=== PATIENT | male | born 1950 | race Caucasian/White ===

== ENCOUNTER 2020-07-05 05:50 | Observation (INO) | payer MEDICARE, OTHER ==
[2020-06-18 10:51] LABS: BASOPHILS % 0.7 % (0.0-1.0); EOSINOPHILS # (AUTO) 0.5 (0.0-0.4); EOSINOPHILS % 8.3 % (0.0-6.0); HEMOGLOBIN 16.3 g/dL (14.0-18.0); LYMPHOCYTES # (AUTO) 1.1 (1.0-3.2); MEAN CORPUSCULAR HGB CONC 33.3 g/dL (31-35); MEAN CORPUSCULAR VOLUME 93.2 fL (81-99); MONOCYTES # (AUTO) 0.4 (0.2-0.8); MONOCYTES % 6.2 % (4.4-11.3); NEUTROPHILS # (AUTO) 3.7 (2.1-6.9); NEUTROPHILS % 65.3 % (38.7-80.0); PLATELET COUNT 167 x10e3/uL (140-360); RED BLOOD COUNT 5.26 x10e6/uL (4.3-5.7); RED CELL DISTRIBUTION WIDTH 13.8 % (11.7-14.4)
[2020-06-18 11:16] LABS: ANION GAP 16.2 mmol/L (8-16); BLOOD UREA NITROGEN 17 mg/dL (7-26); BUN/CREATININE RATIO 18 (6-25); CALCIUM 10.2 mg/dL (8.4-10.2); CARBON DIOXIDE 24 mmol/L (22-29); CHLORIDE 102 mmol/L (98-107); CREATININE, SERUM 0.93 mg/dL (0.72-1.25); EST GLOMERULAR FILTRATION RATE > 60 ML/MIN (60-); GLUCOSE 135 mg/dL (74-118); POTASSIUM 4.2 mmol/L (3.5-5.1); SODIUM 138 mmol/L (136-145)
[~2020-07-05] VITALS: Ht 175.3 cm; Wt 112.9 kg
[~2020-07-05 05:50] MED LIST: ALFUZOSIN HCL10 MG PO; CELEBREX100 MG PO; LATANOPROST2.5 ML OU; LISINOPRIL-HCT1 EAC2 PO; MYRBETRIQ50 MG PO; SYNJARDY 12.5-1 EACH PO; TRULICITY0.75 MG/0. SQ; VESICARE10 MG PO
[2020-07-05] MEDS ORDERED: CEFTRIAXONE SOD 1 GM/NS 50 ML 50 ML IV ONE (06:25)
[2020-07-05] MEDS ORDERED: B&O 60MG R/S 60 MG SUPP PR ONE (07:35)
[2020-07-05] MEDS ORDERED: ONDANSETRON HCL INJ 2MG/ML 2ML 2 MG/ML VIAL ONE ×2 (09:25→18:06)
[2020-07-05] MEDS ORDERED: SODIUM CHLORIDE 0.9% 1000ML 1,000 ML ONE (09:44)
[2020-07-05 10:34] VITALS: BP 136/69
[2020-07-05 10:41] VITALS: BP 136/69
[2020-07-05 10:45] VITALS: BP 136/69
[2020-07-05] MEDS ORDERED: CELECOXIB 100 MG CAP PO PRN (11:15)
[2020-07-05] MEDS ORDERED: MIDAZOLAM HCL 2 MG/2 ML VIAL ONE (13:11)
[2020-07-05] MEDS ORDERED: FENTANYL CITRATE/PF 100MCG/2 ML INJ ONE (13:11)
[2020-07-05] MEDS: CIPROFLOXACIN 500 MG TAB PO SCH ×2 (13:59→20:13)
[2020-07-05 15:31] VITALS: BP 102/59
[2020-07-05] MEDS ORDERED: LIDOCAINE HCL 2% LOCAL INJ 5 ML SDV VIAL INJ ONE (18:06)
[2020-07-05] MEDS ORDERED: SEVOFLURANE INHAL SOLN 250 ML PEN BTL ONE (18:06)
[2020-07-05] MEDS ORDERED: PROPOFOL IV EMULSION 10 MG/ML 20 ML VIAL ONE (18:06)
[2020-07-05] MEDS ORDERED: DEXAMETHASONE SOD PHOS INJ 4 MG/ML VIAL ONE (18:06)
[2020-07-05] MEDS: EMPAGLIFLOZIN PO SCH (18:12)
[2020-07-05] MEDS: METFORMIN HCL PO SCH (18:12)
[2020-07-05 19:33] VITALS: BP 113/62
[2020-07-05 19:52] VITALS: BP 113/62
[2020-07-05] MEDS: LATANOPROST(OPTH) 2.5 ML BTL OU SCH (20:13)
[2020-07-05] MEDS: ACETAMINOPHEN/CODEINE 300MG - 30MG TAB PO PRN (20:29)
[2020-07-05] MEDS ORDERED: ZOLPIDEM TARTRATE 10 MG TAB PO PRN (21:15)
[2020-07-06] VITALS (9 sets, daily range): BP systolic 95–139; BP diastolic 59–67
[2020-07-06] MEDS: ALFUZOSIN HCL 10 MG TAB.ER.24H PO SCH (08:02)
[2020-07-06] MEDS: CIPROFLOXACIN 500 MG TAB PO SCH ×2 (08:02→20:32)
[2020-07-06] MEDS: EMPAGLIFLOZIN PO SCH ×2 (08:02→16:47)
[2020-07-06] MEDS: METFORMIN HCL PO SCH ×2 (08:02→16:47)
[2020-07-06] MEDS: HYDROCHLOROTHIAZIDE 25 MG TAB PO SCH (08:02)
[2020-07-06] MEDS: LISINOPRIL 10 MG TAB PO SCH (08:03)
[2020-07-06] MEDS ORDERED: NON-FORMULARY MEDICATION (Solifenacin Succinate (Vesicare) 10 MG) PO SCH (09:00)
[2020-07-06] MEDS ORDERED: NON-FORMULARY MEDICATION (Mirabegron (Myrbetriq) 50 MG) PO SCH (09:00)
[2020-07-06] MEDS: ACETAMINOPHEN/CODEINE 300MG - 30MG TAB PO PRN (13:36)
[2020-07-06] MEDS: LATANOPROST(OPTH) 2.5 ML BTL OU SCH (20:32)
[2020-07-07 05:27] VITALS: BP 103/62
[2020-07-07 07:30] VITALS: BP 109/51
[2020-07-07 08:00] VITALS: BP 109/51
[2020-07-07] MEDS: CIPROFLOXACIN 500 MG TAB PO SCH (08:01)
[2020-07-07] MEDS: EMPAGLIFLOZIN PO SCH (08:01)
[2020-07-07] MEDS: METFORMIN HCL PO SCH (08:01)
[2020-07-07] MEDS: ALFUZOSIN HCL 10 MG TAB.ER.24H PO SCH (08:04)
[2020-07-07] MEDS: LISINOPRIL 10 MG TAB PO SCH (08:18)
[2020-07-07] MEDS: HYDROCHLOROTHIAZIDE 25 MG TAB PO SCH (08:18)
[2020-07-09] MEDS ORDERED: (Dulaglutide (Trulicity) 0.75 MG) SC SCH (09:00)
== END 2020-07-07 09:06 | disposition home or self-care (01) ==
LOC: OR 05:50 → PACU V 09:06 → IMCU 10:38 → MED/SURG2 07-06 17:56
PROVIDERS: ADMIT Urology; ATTEND Urology
DX: N32.0 Bladder-neck obstruction (principal); Z11.59 Encounter for screening for other viral diseases; G47.33 Obstructive sleep apnea (adult) (pediatric); E11.9 Type 2 diabetes mellitus without complications
CPT/HCPCS: 36415 ×3; 55899; 71046; 80048; 82948 ×2; 85025; 88305; 93005; G0378 ×3; J0696; J1100; J2001; J2250; J2405; J2704; J3010; J7030; U0002 ×2